=== PATIENT | male | born 1975 | race Caucasian/White ===

== ENCOUNTER 2018-11-21 10:04 | Inpatient (IN) ==
[2018-11-21 11:11] LABS: Basophils % 0.2 %; Eosinophils % 0.2 %; Hematocrit 45.8 % (37.5-50.1); Hemoglobin 15.9 g/dL (12.9-16.9); Immature Granulocytes % 0.5 % (0-4); Lymphocytes # 1.3 K/mcL (0.6-4.6); Lymphocytes % 10.2 %; Mean Corpuscular HGB Conc 34.7 g/dL (31.6-35.5); Mean Corpuscular Hemoglobin 31.6 pg (28.0-33.3); Mean Corpuscular Volume 91.1 fL (83.0-100.0); Mean Platelet Volume 11.6 fL (9.4-12.4); Monocytes # 1.1 K/mcL (0.0-1.3); Monocytes % 8.4 %; Neutrophils # 10.3 K/mcL (1.6-8.9); Platelet Count 216 K/mcL (140-400); Red Blood Count 5.03 M/mcL (4.19-5.50); Red Cell Distribution Width 12.2 % (11.5-14.5); Segmented Neutrophils % 80.5 %; White Blood Count 12.8 K/mcL (4.3-11.1)
[2018-11-21 11:28] LABS: Alanine Aminotransferase 16 Units/L (7-52); Albumin 4.5 g/dL (3.5-5.7); Albumin/Globulin Ratio 1.7 (1.1-2.2); Alkaline Phosphatase 49 Units/L (34-104); Aspartate Amino Transferase 14 Units/L (13-39); BUN/Creatinine Ratio 12 (6-26); Bilirubin,Direct 0.3 mg/dL (0.0-0.2); Bilirubin,Indirect 1.5 mg/dL (0.0-1.2); Bilirubin,Total 1.8 mg/dL (0.3-1.0); Blood Urea Nitrogen 14 mg/dL (6-20); Calcium 9.4 mg/dL (8.6-10.3); Carbon Dioxide 28 mEq/L (23-29); Chloride 103 mEq/L (98-107); Globulin 2.7 g/dL (2.4-3.5); Glucose 99 mg/dL (70-105); Lipase 16 Units/L (11-82); Osmolality,Calculated 285 (280-300); Potassium 3.9 mEq/L (3.5-5.1); Sodium 137 mEq/L (136-145); Total Protein 7.2 g/dL (6.4-8.9); eGFR For African Americans > 60 (> 60); eGFR For Non-African Americans > 60 (> 60)
--- NOTE | 2018-11-21 11:30 | Emergency Department Note ---
Disposition Clinical Impression: Perforated diverticulum, Diverticula of intestine, Lung nodule Disposition: Admitted As Inpatient Condition: Fair Time of Disposition: 12:20 Abdominal Pain HPI - General Chief Complaint: ED Abdominal Pain Stated Complaint: Abd Pain Time Seen by Provider: 11/21/18 10:57 Source: patient Mode of arrival: private vehicle Limitations: no limitations Nursing Notes Reviewed: Yes Vital Signs Reviewed: Yes - History of Present Illness HPI Narrative: Patient reports abdominal pain that started yesterday at 16:00. Pain to his left lower quadrant and suprapubic region. Associated with a fever of 100.3 and decreased appetite. Pain worse with palpation. He also notes nausea and diarrhea He states his pain is subjectively different than his previous kidney stones. Pt Subjective Complaint: abdominal pain Onset (ago): day(s) Consistency: constant Location: LLQ, suprapubic Pain Severity: severe Pain Scale: 8 Radiation: none Migration to: no migration Improves with: nothing Worsens with: other (Palpation) Associated symptoms: Reports: nausea, diarrhea, fever, dysuria - Related Data Home Medications Medication Instructions Recorded Confirmed No Known Home Drugs 11/21/18 11/21/18 Allergies Allergy/AdvReac Type Severity Reaction Status Date / Time No Known Allergies Allergy Verified 06/13/17 13:28 All systems ED: reviewed and negative except as stated. Constitutional: Reports: fever Eyes: Reports: as per HPI ENT ED: Reports: as per HPI Cardiovascular: Reports: as per HPI Respiratory: Reports: as per HPI Gastrointestinal: Reports: abdominal pain, nausea, diarrhea Genitourinary: Reports: dysuria Musculoskeletal: Reports: as per HPI Integumentary: Reports: as per HPI Neurological: Reports: as per HPI Psychiatric: Reports: as per HPI Endocrine: Reports: as per HPI Hematological/Lymphatic: Reports: as per HPI Allergic/Immunologic: Reports: as per HPI Abdominal Pain PMH - Past Medical History Medical history: Reports: no medical history, other (Kidney stones) Male Surgical History: Reports: no surgical history Psychiatric history: Reports: no psych history - Social History Smoking status: Never smoker Alcohol use: Reports: none Drug use: Reports: none Physical Exam - General Limitations: no limitations General appearance: alert, in no apparent distress - Head Head exam: atraumatic - Eye Eye exam: Present: normal appearance - ENT ENT exam: normal exam - Neck Neck exam: Present: normal inspection, full ROM - Chest Chest inspection: Present: normal inspection, symmetric chest wall rise - Respiratory Respiratory exam: Present: normal lung sounds bilaterally - Cardiovascular Cardiovascular exam: Present: regular rate, normal rhythm - Abdominal Exam Abdominal exam: Present: soft, tenderness (Tender with mild voluntary guarding his left lower quadrant. No involuntary guarding, rebound, rigidity), normal bowel sounds Abdominal tenderness: Present: RLQ. Absent: RUQ - Rectal Exam Rectal exam: Present: deferred - Extremities Exam Extremities exam: Present: normal inspection - Neurological Exam Neurological exam: Present: alert, oriented X3, CN II-XII intact - Psychiatric Psychiatric exam: Present: normal affect, normal mood - Skin Skin exam: Present: warm, dry, intact Course Course Narrative: Patient presents to the emergency department with left lower quadrant abdominal pain, fever. He does have tenderness on exam which I feel warrants a CT scan of his abdomen and pelvis. Additionally, subjectively he states that his pain is different than his previous kidney stones. Patient offered analgesics but declined Vital Signs Temperature 98.0 F 11/21/18 10:05 Pulse Rate 91 11/21/18 10:05 Respiratory Rate 18 11/21/18 10:05 Blood Pressure 136/84 11/21/18 10:05 O2 Sat by Pulse Oximetry 99 11/21/18 10:05 Temperature 98.0 F 11/21/18 10:05 Pulse Rate 91 11/21/18 10:05 Respiratory Rate 18 11/21/18 10:05 Blood Pressure 136/84 11/21/18 10:05 O2 Sat by Pulse Oximetry 99 11/21/18 10:05 Oxygen Delivery Oxygen Delivery Room Air Abdominal Pain - Medical Records Medical records reviewed: Yes I reviewed the patient's medical records. - Lab Data Lab results reviewed: Yes I reviewed the patient's lab results. Result diagrams: 11/21/18 10:50 11/21/18 10:50 Lab Results 11/21/18 11/21/18 Range/Units 10:50 10:50 WBC 12.8 H (4.3-11.1) K/mcL RBC 5.03 (4.19-5.50) M/mcL Hgb 15.9 (12.9-16.9) g/dL Hct 45.8 (37.5-50.1) % MCV 91.1 (83.0-100.0) fL MCH 31.6 (28.0-33.3) pg MCHC 34.7 (31.6-35.5) g/dL RDW 12.2 (11.5-14.5) % Plt Count 216 (140-400) K/mcL MPV 11.6 (9.4-12.4) fL Immature Gran % 0.5 (0-4) % Seg Neutrophils % 80.5 % Lymphocytes % 10.2 % Monocytes % 8.4 % Eosinophils % 0.2 % Basophils % 0.2 % Neutrophils # 10.3 H (1.6-8.9) K/mcL Lymphocytes # 1.3 (0.6-4.6) K/mcL Monocytes # 1.1 (0.0-1.3) K/mcL Eosinophils # 0.0 (0.0-0.6) K/mcL Basophils # 0.0 (0.0-0.2) K/mcL Sodium 137 (136-145) mEq/L Potassium 3.9 (3.5-5.1) mEq/L Chloride 103 (98-107) mEq/L Carbon Dioxide 28 (23-29) mEq/L BUN 14 (6-20) mg/dL Creatinine 1.17 (0.70-1.30) mg/dL Est GFR ( Amer) > 60 (> 60) Est GFR (Non-Af Amer) > 60 (> 60) BUN/Creatinine Ratio 12 (6-26) Glucose 99 (70-105) mg/dL Calculated Osmolality 285 (280-300) Calcium 9.4 (8.6-10.3) mg/dL Total Bilirubin 1.8 H (0.3-1.0) mg/dL Direct Bilirubin 0.3 H (0.0-0.2) mg/dL Indirect Bilirubin 1.5 H (0.0-1.2) mg/dL AST 14 (13-39) Units/L ALT 16 (7-52) Units/L Alkaline Phosphatase 49 (34-104) Units/L Serum Total Protein 7.2 (6.4-8.9) g/dL Albumin 4.5 (3.5-5.7) g/dL Globulin 2.7 (2.4-3.5) g/dL Albumin/Globulin Ratio 1.7 (1.1-2.2) Lipase 16 (11-82) Units/L - Radiology Data Radiology results reviewed: Yes I reviewed the patient's radiology results. Critical Care Time Critical Care Time: Yes Total Critical Care Time: 30 Attestation: The high probability of a clinically significant, sudden or life threatening deterioration of the [] system(s) required my full and direct attention, intervention and personal management. The aggregate critical care time was [] minutes. This time is in addition to time spent performing reported procedures but includes the following: [] Data Review and interpretation [] Patient assessment and monitoring of vital signs [] Documentation [] Medication orders and management
[2018-11-21] MEDS ORDERED: Piperacillin/Tazobactam 3.375 GM in 0.9 % Sodium Chloride Mini Bag 100 ML IVPB ONE (12:19)
[2018-11-21] MEDS ORDERED: MetroNIDAZOLE 500 MG/100 ML 500 MG/100 ML BAG IVPB ONE (12:19)
[2018-11-21 12:45] LABS: Bilirubin,Urine Negative (Negative); Blood,Urine Negative (Negative); Clarity,Urine Clear (Clear); Color,Urine Yellow (Yellow); Glucose,Urine (UA) Normal (Normal); Ketones,Urine Negative (Negative); Leukocyte Esterase,Urine Negative (Negative); Nitrite,Urine Negative (Negative); PH,Urine 6.5 pH Units (5.0-8.0); Protein,Urine Negative (Neg-Trace); Specific Gravity,Urine 1.014 (1.010-1.025); Urobilinogen,Urine Normal (Normal)
[2018-11-21] MEDS: 0.9 % Sodium Chloride 1,000 ML IVC SCH (14:00)
[2018-11-21] MEDS ORDERED: Ondansetron 4 MG/2 ML VIAL IVP PRN (14:23)
[2018-11-21] MEDS ORDERED: Naloxone 0.4 MG/ML INJ IVP PRN (14:23)
--- NOTE | 2018-11-21 14:41 | Acute Care Surgery H&P ---
<Stacey Lion - Last Filed: 11/21/18 19:23> Date of Encounter: 11/21/18 Time of Encounter: 14:29 Assessment and Plan (1) Perforation of sigmoid colon due to diverticulitis Current Visit: Yes Status: Acute Presents with left lower quadrant and suprapubic abdominal pain with self- reported fever, nausea, anorexia, diarrhea CT abdomen and pelvis-acute perforated sigmoid diverticulitis with contained perforation within the sigmoid mesentery with extraluminal gas noted, no scattered intraperitoneal free air identified, with adjacent fat stranding, a mild amount of free fluid, though no fluid collection or drainable abscess. Currently vital signs stable, afebrile. Self reported temperature of 100.3 at home Leukocytosis at 12.8, hyperbilirubinemia Conservative medical management Nothing by mouth Normal saline maintenance fluid Antibiotic coverage-Zosyn day 1 Pain control- Ofirmev Nausea-Zofran DVT prophylaxis subcutaneous heparin The assessment and plan as outlined above was discussed with the patient and/or family members who expressed understanding and agreement. All questions were answered. (2) Lung nodule Current Visit: Yes Status: Chronic Patient has a history of lung nodule which is being followed outpatient by PCP CT abdomen and pelvis-stable cluster of noncalcified nodules within the right lower lobe, the largest measuring 9 mm on average which is unchanged since 2017. Continue outpatient follow-up (3) DVT prophylaxis Current Visit: Yes Status: Acute Subcutaneous heparin History of Present Illness Chief complaint: Abdominal pain HPI: Mr. Talavera is a 43 year old male who presented with chief complaint of abdominal pain of one-day duration. He has a past medical history significant for multi ple calcium oxalate kidney stones as well as a pulmonary nodule which is being followed outpatient by his PCP. Patient states that the abdominal pain started yesterday afternoon and was located in the left lower quadrant and suprapubic region. He states that the pain progressed over the afternoon and into the evening. At its worst it was rated as 8 out of 10, it is constant, dull, aching, without radiation. It is aggravated by movement. It is alleviated by nothing, he did try to take one Motrin yesterday which did not alleviate the pain. Associated symptoms include fever which he measured at home at 100.3, anorexia, nausea, abdominal distention and one episode of diarrhea. Normal chelsie l function for him includes defecation once per day, soft stool. He denies chills, vomiting, headache, vision change, dysphasia, chest pain, shortness of breath, melena, hematochezia, dysuria, hematuria, calf pain, skin rash, parasthesias. He denies prior surgical history, and history noncontributory, per social history he denies tobacco use, alcohol, illicit drug use. Past Med Surg Social Fam HX - Past Medical History Medical history: no medical history, other Psychiatric history: no psych history - Past Surgical History Surgical History: no surgical history - Social History Smoking Status: Never smoker Smokeless Tobacco Status: No Alcohol use: none Drug use: none Medications and Allergies No Known Home Drugs 11/21/18 [History] Allergy/AdvReac Type Severity Reaction Status Date / Time No Known Allergies Allergy Verified 11/21/18 20:33 Review of Systems All systems PM: The remainder of the systems were reviewed and are negative - Constitutional anorexia, fever(s), no chills, no headache(s) - EENT Nose, mouth and throat: no abnormal hearing, no dysphagia - Cardiovascular no chest pain, no dyspnea, no lightheadedness - Respiratory no cough, no dyspnea - Gastrointestinal abdominal pain, bloating, change in bowel habits, diarrhea, nausea, no constipation, no dysphagia, no hematochezia, no melena, no vomiting - Genitourinary no dysuria, no hematuria - Musculoskeletal no arthralgias, no myalgias - Integumentary no lesions, no rash - Neurological no dizziness, no syncope - Psychiatric no anxiety, no depression - Endocrine no cold intolerance, no heat intolerance - Hematologic/Lymphatic no easy bleeding General Surgery Exam Initial Vital Signs Temp Pulse Resp BP Pulse Ox 98.0 F 91 18 136/84 99 11/21/18 10:05 11/21/18 10:05 11/21/18 10:05 11/21/18 10:05 11/21/18 10:05 - General physical appearance well developed, well nourished, no distress - Eyes PERRL, normal ocular movement - ENT normal mucosa, no hearing loss, no congestion - Neck no masses, trachea midline, no venous distension - Respiratory normal expansion, normal respiratory effort, clear to auscultation - Cardiovascular Cardiovascular exam: Present: RRR, no murmurs/rubs/gallops. Absent: JVD - Abdomen Abdomen general surgery: Present: bowel sounds present, soft, distended (Mildly), tender. Absent: organomegaly, guarding, rebound Abdominal Tenderness: Present: LLQ, suprapubic - Integumentary Integumentary general surgery: Present: warm and dry, no abnormal pigmentation - Neurologic Present: CN 2-12 grossly intact, normal coordination, normal sensation - Musculoskeletal Present: normal gait, normal posture - Psychiatric Psychiatric general surgery: Present: appropriate, oriented to person, oriented to place, oriented to time, speech is normal, memory intact Results - Labs 11/21/18 10:50 11/21/18 10:50 Abnormal lab results WBC 12.8 K/mcL (4.3-11.1) H 11/21/18 10:50 10.3 K/mcL (1.6-8.9) H 11/21/18 10:50 1.8 mg/dL (0.3-1.0) H 11/21/18 10:50 0.3 mg/dL (0.0-0.2) H 11/21/18 10:50 1.5 mg/dL (0.0-1.2) H 11/21/18 10:50 Diabetes panel 11/21/18 Range/Units 10:50 Sodium 137 (136-145) mEq/L Potassium 3.9 (3.5-5.1) mEq/L Chloride 103 (98-107) mEq/L Carbon Dioxide 28 (23-29) mEq/L BUN 14 (6-20) mg/dL Creatinine 1.17 (0.70-1.30) mg/dL Glucose 99 (70-105) mg/dL Calcium 9.4 (8.6-10.3) mg/dL AST 14 (13-39) Units/L ALT 16 (7-52) Units/L Alkaline Phosphatase 49 (34-104) Units/L Albumin 4.5 (3.5-5.7) g/dL Calcium panel 11/21/18 Range/Units 10:50 Calcium 9.4 (8.6-10.3) mg/dL Albumin 4.5 (3.5-5.7) g/dL Pituitary panel 11/21/18 Range/Units 10:50 Sodium 137 (136-145) mEq/L Potassium 3.9 (3.5-5.1) mEq/L Chloride 103 (98-107) mEq/L Carbon Dioxide 28 (23-29) mEq/L BUN 14 (6-20) mg/dL Creatinine 1.17 (0.70-1.30) mg/dL Glucose 99 (70-105) mg/dL Calcium 9.4 (8.6-10.3) mg/dL Adrenal panel 11/21/18 Range/Units 10:50 Sodium 137 (136-145) mEq/L Potassium 3.9 (3.5-5.1) mEq/L Chloride 103 (98-107) mEq/L Carbon Dioxide 28 (23-29) mEq/L BUN 14 (6-20) mg/dL Creatinine 1.17 (0.70-1.30) mg/dL Glucose 99 (70-105) mg/dL Calcium 9.4 (8.6-10.3) mg/dL Total Bilirubin 1.8 H (0.3-1.0) mg/dL AST 14 (13-39) Units/L ALT 16 (7-52) Units/L Alkaline Phosphatase 49 (34-104) Units/L Albumin 4.5 (3.5-5.7) g/dL All other labs normal. <Abrahan Xavier F - Last Filed: 11/21/18 20:46> Date of Encounter: 11/21/18 History of Present Illness HPI: Mr. Talavera is a 43 year old male Review of Systems All systems PM: The remainder of the systems were reviewed and are negative General Surgery Exam Initial Vital Signs Temp Pulse Resp BP Pulse Ox 98.0 F 91 18 136/84 99 11/21/18 10:05 11/21/18 10:05 11/21/18 10:05 11/21/18 10:05 11/21/18 10:05 Results - Labs 11/21/18 10:50 11/21/18 10:50 Abnormal lab results WBC 12.8 K/mcL (4.3-11.1) H 11/21/18 10:50 10.3 K/mcL (1.6-8.9) H 11/21/18 10:50 POC Glucose 102 mg/dL (70-99) H 11/21/18 17:39 1.8 mg/dL (0.3-1.0) H 11/21/18 10:50 0.3 mg/dL (0.0-0.2) H 11/21/18 10:50 1.5 mg/dL (0.0-1.2) H 11/21/18 10:50 Diabetes panel 11/21/18 Range/Units 10:50 Sodium 137 (136-145) mEq/L Potassium 3.9 (3.5-5.1) mEq/L Chloride 103 (98-107) mEq/L Carbon Dioxide 28 (23-29) mEq/L BUN 14 (6-20) mg/dL Creatinine 1.17 (0.70-1.30) mg/dL Glucose 99 (70-105) mg/dL Calcium 9.4 (8.6-10.3) mg/dL AST 14 (13-39) Units/L ALT 16 (7-52) Units/L Alkaline Phosphatase 49 (34-104) Units/L Albumin 4.5 (3.5-5.7) g/dL Calcium panel 11/21/18 Range/Units 10:50 Calcium 9.4 (8.6-10.3) mg/dL Albumin 4.5 (3.5-5.7) g/dL Pituitary panel 11/21/18 Range/Units 10:50 Sodium 137 (136-145) mEq/L Potassium 3.9 (3.5-5.1) mEq/L Chloride 103 (98-107) mEq/L Carbon Dioxide 28 (23-29) mEq/L BUN 14 (6-20) mg/dL Creatinine 1.17 (0.70-1.30) mg/dL Glucose 99 (70-105) mg/dL Calcium 9.4 (8.6-10.3) mg/dL Adrenal panel 11/21/18 Range/Units 10:50 Sodium 137 (136-145) mEq/L Potassium 3.9 (3.5-5.1) mEq/L Chloride 103 (98-107) mEq/L Carbon Dioxide 28 (23-29) mEq/L BUN 14 (6-20) mg/dL Creatinine 1.17 (0.70-1.30) mg/dL Glucose 99 (70-105) mg/dL Calcium 9.4 (8.6-10.3) mg/dL Total Bilirubin 1.8 H (0.3-1.0) mg/dL AST 14 (13-39) Units/L ALT 16 (7-52) Units/L Alkaline Phosphatase 49 (34-104) Units/L Albumin 4.5 (3.5-5.7) g/dL All other labs normal. - Attending Attestation I examined this patient and my medical decision-making was reviewed with the Resident Physician. I agree with the documented findings, disposition and treatment plan as described except to the extent set forth below.
[2018-11-21] MEDS ORDERED: Ketorolac 30 MG/ML VIAL IVP PRN (15:28)
[2018-11-21] MEDS: *HR* Heparin 5,000 UNIT/ML VIAL SQ SCH (18:52)
[2018-11-21] MEDS ORDERED: Acetaminophen IV 1,000 MG/100 ML INFUS..BTL IVPB PRN (19:20)
[2018-11-21] MEDS: Piperacillin/Tazobactam 3.375 GM in 0.9 % Sodium Chloride Mini Bag 100 ML IVPB SCH (20:08)
[2018-11-22] MEDS: 0.9 % Sodium Chloride 1,000 ML IVC SCH (01:09)
[2018-11-22] MEDS: Piperacillin/Tazobactam 3.375 GM in 0.9 % Sodium Chloride Mini Bag 100 ML IVPB SCH ×3 (04:20→20:15)
[2018-11-22 05:25] LABS: Basophils % 0.2 %; Eosinophils # 0.1 K/mcL (0.0-0.6); Eosinophils % 0.6 %; Hematocrit 41.2 % (37.5-50.1); Immature Granulocytes % 0.5 % (0-4); Lymphocytes # 1.1 K/mcL (0.6-4.6); Lymphocytes % 11.2 %; Mean Corpuscular HGB Conc 33.3 g/dL (31.6-35.5); Mean Corpuscular Hemoglobin 31.4 pg (28.0-33.3); Mean Corpuscular Volume 94.3 fL (83.0-100.0); Mean Platelet Volume 11.8 fL (9.4-12.4); Monocytes # 0.9 K/mcL (0.0-1.3); Monocytes % 8.7 %; Neutrophils # 7.7 K/mcL (1.6-8.9); Platelet Count 179 K/mcL (140-400); Red Blood Count 4.37 M/mcL (4.19-5.50); Segmented Neutrophils % 78.8 %; White Blood Count 9.8 K/mcL (4.3-11.1)
[2018-11-22 05:26] LABS: Hemoglobin 13.7 g/dL (12.9-16.9)
[2018-11-22 05:44] LABS: BUN/Creatinine Ratio 12 (6-26); Blood Urea Nitrogen 14 mg/dL (6-20); Calcium 8.5 mg/dL (8.6-10.3); Carbon Dioxide 24 mEq/L (23-29); Chloride 107 mEq/L (98-107); Glucose 98 mg/dL (70-105); Magnesium 2.2 mg/dL (1.6-2.6); Osmolality,Calculated 290 (280-300); Phosphorous 2.7 mg/dL (2.7-4.5); Potassium 3.9 mEq/L (3.5-5.1); Sodium 140 mEq/L (136-145); eGFR For African Americans > 60 (> 60); eGFR For Non-African Americans > 60 (> 60)
[2018-11-22] MEDS: *HR* Heparin 5,000 UNIT/ML VIAL SQ SCH ×2 (05:49→17:40)
--- NOTE | 2018-11-22 10:24 | AcuteCareSurgery Progress Note ---
<Stacey Lion - Last Filed: 11/22/18 10:22> Date of Encounter: 11/22/18 Time of Encounter: 10:22 - Assessment and Plan (1) Perforation of sigmoid colon due to diverticulitis Current Visit: Yes Status: Acute Presents with left lower quadrant and suprapubic abdominal pain with self- reported fever, nausea, anorexia, diarrhea CT abdomen and pelvis-acute perforated sigmoid diverticulitis with contained perforation within the sigmoid mesentery with extraluminal gas noted, no scattered intraperitoneal free air identified, with adjacent fat stranding, a mild amount of free fluid, though no fluid collection or drainable abscess. Currently vital signs stable, afebrile. Self reported temperature of 100.3 at home Leukocytosis at 12.8, hyperbilirubinemia Continue conservative medical management Leukocytosis has resolved, currently 9.8 We will advance diet to clear liquids Discontinue IV fluids Antibiotic coverage-Zosyn day 2 Pain control-ofirmev Nausea-Zofran Continue to ambulate (2) Creatinine elevation Current Visit: Yes Status: Acute Creatinine higher than expected for his age and state of health. Remains within normal limits. Creatinine on admission 1.17, currently 1.19 Could be secondary to his anorexia, diarrhea Continue to monitor Discussed further evaluation for patient via primary care on discharge (3) Lung nodule Current Visit: Yes Status: Chronic Patient has a history of lung nodule which is being followed outpatient by PCP CT abdomen and pelvis-stable cluster of noncalcified nodules within the right lower lobe, the largest measuring 9 mm on average which is unchanged since 2017. Continue outpatient follow-up (4) DVT prophylaxis Current Visit: Yes Status: Acute Subcutaneous heparin Subjective Narrative: Patient seen and examined at bedside today. His leukocytosis has improved with IV antibiotics. He denies pain, he denies fever, chills, nausea, vomiting, chest pain, shortness breath, abdominal pain, dysuria, diarrhea, constipation, calf pain. Patient states that he is feeling hungry today and he is ambulating well. He is last bowel movement occurred on Tuesday. Objective Vital Signs - Last 8 Hours Temp Pulse Resp BP Pulse Ox 11/22/18 06:55 98.3 F 75 14 106/70 97 11/22/18 06:43 98.3 F 75 14 106/70 97 11/22/18 03:35 98.4 F 75 14 101/67 97 Intake and Output 11/21/18 11/22/18 11/22/18 23:59 07:59 15:59 Intake Total 1000 / 1100 100 / 100 Balance 1000 / 1100 100 / 100 Intake: IV Fluids 1000 / 1100 100 / 100 0.9 % Sodium Chloride 1,000 ML 1000 / 1000 @ 120 mls/hr IVC .[id number] [facility] Rx #:[id number] Zosyn 3.375 GM In 0.9 % Sodium 100 / 100 Chloride (Mini-Bag +) 100 ML @ 25 mls/hr IVPB Q8H DELLA Rx#: [id number] Oral 0 / 0 0 / 0 Other: Meal npo # Voids 2 1 # Bowel Movements 0 0 Weight 78.9 kg Blood Glucose* 102 91 Patient Weight 11/22/18 23:59 Weight 78.9 kg - General physical appearance well developed, no distress - Eyes PERRL, normal ocular movement - ENT normal nares, normal mucosa, no congestion - Neck Neck exam: trachea midline, no venous distension - Respiratory normal expansion, normal respiratory effort, clear to percussion, clear to auscultation - Cardiovascular Cardiovascular exam: Present: RRR, no murmurs/rubs/gallops. Absent: JVD - Abdomen Abdomen: Present: bowel sounds present, soft, distended (Mild, decreased since yesterday), tender (Mild) Abdominal Tenderness: LLQ - Integumentary no rash, no abnormal pigmentation - Neurologic CN 2-12 grossly intact, normal coordination, normal sensation - Musculoskeletal normal gait, normal posture - Psychiatric oriented to time, oriented to person, oriented to place, speech is normal, memory intact - Labs 11/22/18 04:02 11/22/18 04:02 Diabetes panel 11/21/18 11/22/18 Range/Units 10:50 04:02 Sodium 137 140 (136-145) mEq/L Potassium 3.9 3.9 (3.5-5.1) mEq/L Chloride 103 107 (98-107) mEq/L Carbon Dioxide 28 24 (23-29) mEq/L BUN 14 14 (6-20) mg/dL Creatinine 1.17 1.19 (0.70-1.30) mg/dL Glucose 99 98 (70-105) mg/dL Calcium 9.4 8.5 L (8.6-10.3) mg/dL AST 14 (13-39) Units/L ALT 16 (7-52) Units/L Alkaline Phosphatase 49 (34-104) Units/L Albumin 4.5 (3.5-5.7) g/dL Calcium panel 11/21/18 11/22/18 Range/Units 10:50 04:02 Calcium 9.4 8.5 L (8.6-10.3) mg/dL Phosphorus 2.7 (2.7-4.5) mg/dL Albumin 4.5 (3.5-5.7) g/dL Pituitary panel 11/21/18 11/22/18 Range/Units 10:50 04:02 Sodium 137 140 (136-145) mEq/L Potassium 3.9 3.9 (3.5-5.1) mEq/L Chloride 103 107 (98-107) mEq/L Carbon Dioxide 28 24 (23-29) mEq/L BUN 14 14 (6-20) mg/dL Creatinine 1.17 1.19 (0.70-1.30) mg/dL Glucose 99 98 (70-105) mg/dL Calcium 9.4 8.5 L (8.6-10.3) mg/dL Adrenal panel 11/21/18 11/22/18 Range/Units 10:50 04:02 Sodium 137 140 (136-145) mEq/L Potassium 3.9 3.9 (3.5-5.1) mEq/L Chloride 103 107 (98-107) mEq/L Carbon Dioxide 28 24 (23-29) mEq/L BUN 14 14 (6-20) mg/dL Creatinine 1.17 1.19 (0.70-1.30) mg/dL Glucose 99 98 (70-105) mg/dL Calcium 9.4 8.5 L (8.6-10.3) mg/dL Total Bilirubin 1.8 H (0.3-1.0) mg/dL AST 14 (13-39) Units/L ALT 16 (7-52) Units/L Alkaline Phosphatase 49 (34-104) Units/L Albumin 4.5 (3.5-5.7) g/dL Consult Discharge Plan - Plan Referrals: Issa Hough MD [Primary Care Provider] - <Luke Queen - Last Filed: 11/22/18 16:30> Date of Encounter: 11/22/18 Objective Vital Signs - Last 8 Hours Temp Pulse Resp BP Pulse Ox 11/22/18 14:33 98.3 F 84 14 112/76 98 11/22/18 10:24 98.7 F 79 14 138/78 96 Intake and Output 11/22/18 11/22/18 11/22/18 07:59 15:59 23:59 Intake Total 100 / 200 100 / 200 Balance 100 / 200 100 / 200 Intake: IV Fluids 100 / 200 100 / 200 Zosyn 3.375 GM In 0.9 % Sodium 100 / 200 100 / 200 Chloride (Mini-Bag +) 100 ML @ 25 mls/hr IVPB Q8H [facility] Rx#: [id number] Oral 0 / 0 Other: Meal npo # Voids 1 1 # Bowel Movements 0 Weight 78.9 kg Blood Glucose* 91 Patient Weight 11/22/18 23:59 Weight 78.9 kg - Labs 11/22/18 04:02 11/22/18 04:02 Diabetes panel 11/22/18 Range/Units 04:02 Sodium 140 (136-145) mEq/L Potassium 3.9 (3.5-5.1) mEq/L Chloride 107 (98-107) mEq/L Carbon Dioxide 24 (23-29) mEq/L BUN 14 (6-20) mg/dL Creatinine 1.19 (0.70-1.30) mg/dL Glucose 98 (70-105) mg/dL Calcium 8.5 L (8.6-10.3) mg/dL Calcium panel 11/22/18 Range/Units 04:02 Calcium 8.5 L (8.6-10.3) mg/dL Phosphorus 2.7 (2.7-4.5) mg/dL Pituitary panel 11/22/18 Range/Units 04:02 Sodium 140 (136-145) mEq/L Potassium 3.9 (3.5-5.1) mEq/L Chloride 107 (98-107) mEq/L Carbon Dioxide 24 (23-29) mEq/L BUN 14 (6-20) mg/dL Creatinine 1.19 (0.70-1.30) mg/dL Glucose 98 (70-105) mg/dL Calcium 8.5 L (8.6-10.3) mg/dL Adrenal panel 11/22/18 Range/Units 04:02 Sodium 140 (136-145) mEq/L Potassium 3.9 (3.5-5.1) mEq/L Chloride 107 (98-107) mEq/L Carbon Dioxide 24 (23-29) mEq/L BUN 14 (6-20) mg/dL Creatinine 1.19 (0.70-1.30) mg/dL Glucose 98 (70-105) mg/dL Calcium 8.5 L (8.6-10.3) mg/dL - Attending Attestation I examined this patient and my medical decision-making was reviewed with the Resident Physician. I agree with the documented findings, disposition and treatment plan as described except to the extent set forth below. I reviewed the above assessment and evaluation and agree with the above plan. Will go ahead and allow clears. Continue to monitor. Likely further advancement of his diet tomorrow and consideration for disposition if he cont inues to improve.
[2018-11-23] MEDS: *HR* Heparin 5,000 UNIT/ML VIAL SQ SCH ×2 (05:05→17:55)
[2018-11-23] MEDS: Piperacillin/Tazobactam 3.375 GM in 0.9 % Sodium Chloride Mini Bag 100 ML IVPB SCH ×3 (05:05→20:05)
[2018-11-23 06:09] LABS: Basophils % 0.5 %; Eosinophils # 0.1 K/mcL (0.0-0.6); Eosinophils % 0.9 %; Hemoglobin 13.9 g/dL (12.9-16.9); Immature Granulocytes % 0.5 % (0-4); Lymphocytes # 1.3 K/mcL (0.6-4.6); Lymphocytes % 16.5 %; Mean Corpuscular HGB Conc 33.9 g/dL (31.6-35.5); Mean Corpuscular Hemoglobin 32.1 pg (28.0-33.3); Mean Corpuscular Volume 94.7 fL (83.0-100.0); Mean Platelet Volume 11.8 fL (9.4-12.4); Monocytes # 0.8 K/mcL (0.0-1.3); Neutrophils # 5.8 K/mcL (1.6-8.9); Platelet Count 202 K/mcL (140-400); Red Blood Count 4.33 M/mcL (4.19-5.50); Red Cell Distribution Width 12.1 % (11.5-14.5); Segmented Neutrophils % 71.6 %; White Blood Count 8.1 K/mcL (4.3-11.1)
[2018-11-23 06:33] LABS: BUN/Creatinine Ratio 7 (6-26); Blood Urea Nitrogen 9 mg/dL (6-20); Carbon Dioxide 25 mEq/L (23-29); Chloride 105 mEq/L (98-107); Glucose 96 mg/dL (70-105); Osmolality,Calculated 295 (280-300); Potassium 4.1 mEq/L (3.5-5.1); Sodium 143 mEq/L (136-145); eGFR For African Americans > 60 (> 60); eGFR For Non-African Americans > 60 (> 60)
--- NOTE | 2018-11-23 11:34 | AcuteCareSurgery Progress Note ---
Date of Encounter: 11/23/18 Time of Encounter: 07:30 - Assessment and Plan (1) Perforation of sigmoid colon due to diverticulitis Current Visit: Yes Status: Acute Pt improving well. Tolerating liquid diet. Advance to low residue diet. COntinue IV abx. Will DC on PO abx in am if pt tolerated diet. Subjective Patient reports: no new complaints, feels better, still having pain, tolerating liquids well, flatus, no bowel movement Objective Vital Signs - Last 8 Hours Temp Pulse Resp BP Pulse Ox 11/23/18 10:14 98.3 F 78 16 117/80 99 11/23/18 06:39 98.6 F 66 16 120/76 96 Intake and Output 11/22/18 11/23/18 11/23/18 23:59 07:59 15:59 Intake Total 800 / 1000 Balance 800 / 1000 Intake: IV Fluids 200 / 400 Zosyn 3.375 GM In 0.9 % Sodium 200 / 400 Chloride (Mini-Bag +) 100 ML @ 25 mls/hr IVPB Q8H DELLA Rx#: [id number] Oral 600 / 600 Other: Meal clears # Voids 2 Weight 79.1 kg Patient Weight 11/23/18 23:59 Weight 79.1 kg - General physical appearance well developed, well nourished, no distress, moderate pain (much improved from admission) - Eyes PERRL, normal ocular movement - ENT normal mucosa, no congestion - Neck Neck exam: trachea midline, no venous distension - Respiratory normal respiratory effort, clear to auscultation - Cardiovascular Cardiovascular exam: Present: RRR - Abdomen Abdomen: Present: bowel sounds present, soft, tender Abdominal Tenderness: LLQ - Genitourinary normal penis with no external lesions - Integumentary no rash - Neurologic CN 2-12 grossly intact, normal coordination - Musculoskeletal normal gait, normal posture - Psychiatric oriented to time, oriented to person, oriented to place - Labs 11/23/18 04:51 11/23/18 04:51 Diabetes panel 11/23/18 Range/Units 04:51 Sodium 143 (136-145) mEq/L Potassium 4.1 (3.5-5.1) mEq/L Chloride 105 (98-107) mEq/L Carbon Dioxide 25 (23-29) mEq/L BUN 9 (6-20) mg/dL Creatinine 1.27 (0.70-1.30) mg/dL Glucose 96 (70-105) mg/dL Calcium 9.0 (8.6-10.3) mg/dL Calcium panel 11/23/18 Range/Units 04:51 Calcium 9.0 (8.6-10.3) mg/dL Pituitary panel 11/23/18 Range/Units 04:51 Sodium 143 (136-145) mEq/L Potassium 4.1 (3.5-5.1) mEq/L Chloride 105 (98-107) mEq/L Carbon Dioxide 25 (23-29) mEq/L BUN 9 (6-20) mg/dL Creatinine 1.27 (0.70-1.30) mg/dL Glucose 96 (70-105) mg/dL Calcium 9.0 (8.6-10.3) mg/dL Adrenal panel 11/23/18 Range/Units 04:51 Sodium 143 (136-145) mEq/L Potassium 4.1 (3.5-5.1) mEq/L Chloride 105 (98-107) mEq/L Carbon Dioxide 25 (23-29) mEq/L BUN 9 (6-20) mg/dL Creatinine 1.27 (0.70-1.30) mg/dL Glucose 96 (70-105) mg/dL Calcium 9.0 (8.6-10.3) mg/dL Consult Discharge Plan - Plan Referrals: Issa Hough MD [Primary Care Provider] -
[2018-11-24] MEDS: Piperacillin/Tazobactam 3.375 GM in 0.9 % Sodium Chloride Mini Bag 100 ML IVPB SCH (05:01)
[2018-11-24] MEDS: *HR* Heparin 5,000 UNIT/ML VIAL SQ SCH ×2 (05:07→05:11)
[2018-11-24 06:51] LABS: Basophils % 0.7 %; Eosinophils # 0.1 K/mcL (0.0-0.6); Eosinophils % 2.2 %; Hematocrit 43.1 % (37.5-50.1); Hemoglobin 14.3 g/dL (12.9-16.9); Immature Granulocytes % 0.5 % (0-4); Lymphocytes # 1.3 K/mcL (0.6-4.6); Lymphocytes % 24.5 %; Mean Corpuscular HGB Conc 33.2 g/dL (31.6-35.5); Mean Corpuscular Hemoglobin 31.4 pg (28.0-33.3); Mean Corpuscular Volume 94.5 fL (83.0-100.0); Mean Platelet Volume 11.6 fL (9.4-12.4); Monocytes # 0.6 K/mcL (0.0-1.3); Monocytes % 10.8 %; Neutrophils # 3.4 K/mcL (1.6-8.9); Platelet Count 231 K/mcL (140-400); Red Blood Count 4.56 M/mcL (4.19-5.50); Red Cell Distribution Width 12.1 % (11.5-14.5); Segmented Neutrophils % 61.3 %; White Blood Count 5.5 K/mcL (4.3-11.1)
[2018-11-24 06:57] LABS: BUN/Creatinine Ratio 9 (6-26); Blood Urea Nitrogen 11 mg/dL (6-20); Calcium 9.2 mg/dL (8.6-10.3); Carbon Dioxide 26 mEq/L (23-29); Chloride 104 mEq/L (98-107); Glucose 90 mg/dL (70-105); Osmolality,Calculated 293 (280-300); Potassium 3.9 mEq/L (3.5-5.1); Sodium 142 mEq/L (136-145); eGFR For African Americans > 60 (> 60); eGFR For Non-African Americans > 60 (> 60)
[2018-11-24 07:05] VITALS: BP 113/76
--- NOTE | 2018-11-24 09:19 | Discharge Summary ---
<Stacey Lion - Last Filed: 11/24/18 09:17> - NOTES TO OUTPATIENT PROVIDER Notes to Outpatient Provider: Patient had episode of acute diverticulitis. Medications include ciprofloxacin and metronidazole for 5 days. Patient to follow-up with acute care surgery in 2 weeks. Once diverticulitis resolves, patient will need a colonoscopy. Patient was also noted to have a small elevation in his creatinine which was unusual given his state of health and age. Would recommend continuing to follow his renal function. Date of Encounter: 11/24/18 Time of Encounter: 09:17 - Discharge Diagnosis (1) Perforation of sigmoid colon due to diverticulitis Priority: Primary Status: Acute (2) Creatinine elevation Priority: Secondary Status: Chronic (3) Lung nodule Priority: Secondary Status: Chronic (4) DVT prophylaxis Priority: Secondary Status: Acute General Surgery Exam Initial Vital Signs Temp Pulse Resp BP Pulse Ox 98.0 F 91 18 136/84 99 11/21/18 10:05 11/21/18 10:05 11/21/18 10:05 11/21/18 10:05 11/21/18 10:05 - General physical appearance well developed, well nourished, no distress - Eyes PERRL, normal ocular movement - ENT normal mucosa, no congestion - Neck trachea midline, no venous distension - Respiratory normal expansion, normal respiratory effort, clear to auscultation - Cardiovascular Cardiovascular exam: Present: RRR, no murmurs/rubs/gallops. Absent: JVD - Abdomen Abdomen general surgery: Present: bowel sounds present, soft, non tender - Integumentary Integumentary general surgery: Present: warm and dry, no abnormal pigmentation - Neurologic Present: CN 2-12 grossly intact, normal coordination - Musculoskeletal Present: normal gait, normal posture - Psychiatric Psychiatric general surgery: Present: A&Ox3, appropriate, oriented to person, oriented to place, oriented to time, speech is normal, memory intact - Hospital Course Hospital course: Mr. Talavera is a 43 year old male who presented with left lower quadrant and suprapubic abdominal pain as well as self-report fever, nausea, anorexia, diarrhea. He has a past medical history of a lung nodule which is being followed up by his PCP. Patient was afebrile on admission with some leukocytosis of 12.8. Patient was started on antibiotic coverage with Zosyn. Patient underwent CT abdomen and pelvis which revealed acute micromol perforated sigmoid diverticulitis with contained perforation in the sigmoid mesentery with extraluminal gas noted, scattered intraperitoneal free air identified and a mild amount of free fluid with no fluid collection or drainable abscess. His imaging also revealed a stable cluster of noncalcified nodules within the right lower lung lobe, the largest was measuring 9 mm which is unchanged since last imaging performed in 2017. Over the course of admission, the patient's leukocytosis resolved, pain resolved, and patient able to tolerate diet. There was no need for surgery. Patient remained on Zosyn for antibiotic coverage. His vital signs are stable, patient is well to discharge to home. Medications include metronidazole and ciprofloxacin for 5 days. Patient follow- up in 2 weeks with acute surgery service. Once diverticulitis resolves, patient will need colonoscopy for further evaluation. - Time Spent with Patient Total time spent providing and/or coordinating discharge services: - Discharge Medications Prescriptions: New Ciprofloxacin [Cipro] 500 mg PO BID 5 Days #10 tablet metroNIDAZOLE [Flagyl] 500 mg PO TID 5 Days #15 tablet Home Medications: Ciprofloxacin [Cipro] 500 mg PO BID 5 Days #10 tablet 11/24/18 [Rx] metroNIDAZOLE [Flagyl] 500 mg PO TID 5 Days #15 tablet 11/24/18 [Rx] Allergies/Adverse Reactions: Allergy/AdvReac Type Severity Reaction Status Date / Time No Known Allergies Allergy Verified 11/21/18 20:33 Date of admission: 11/22/18 12:15 Primary care physician: Issa Hough MD Discharging clinician: Stacey Lion Anticipated date of discharge: 11/24/18 Labs on day of discharge: Labs from last 24 hours 11/24/18 11/24/18 05:26 05:26 WBC 5.5 RBC 4.56 Hgb 14.3 Hct 43.1 MCV 94.5 MCH 31.4 MCHC 33.2 RDW 12.1 Plt Count 231 MPV 11.6 Immature Gran % 0.5 Seg Neutrophils % 61.3 Lymphocytes % 24.5 Monocytes % 10.8 Eosinophils % 2.2 Basophils % 0.7 Neutrophils # 3.4 Lymphocytes # 1.3 Monocytes # 0.6 Eosinophils # 0.1 Basophils # 0.0 Sodium 142 Potassium 3.9 Chloride 104 Carbon Dioxide 26 BUN 11 Creatinine 1.22 Est GFR ( Amer) > 60 Est GFR (Non-Af Amer) > 60 BUN/Creatinine Ratio 9 Glucose 90 Calculated Osmolality 293 Calcium 9.2 - Impressions ITS Impressions Abdomen/Pelvis CT 11/21/18 11:13 IMPRESSION: 1. Findings are most consistent with an acute perforated sigmoid diverticulitis, with a contained perforation within the sigmoid mesentery, with adjacent fat stranding and free fluid, though no walled-off fluid collection or drainable abscess is identified. Suggest appropriate clinical treatment, and consider at least short-term CT abdomen/pelvis follow-up to ensure resolution of these findings, as a perforated malignant sigmoid mass is not excluded. 2. Bilateral nonobstructing nephrolithiasis, without evidence of a ureteral calculus or hydronephrosis. 3. Stable cluster of noncalcified nodules within the right lower lobe, the largest measuring 9 mm on average, unchanged from 01/07/2017. Consider a final follow-up chest CT in 2 months to document 2 year stability of these nodules. RECOMMENDATIONS: Fleischner Society guidelines for follow-up and management of incidentally detected pulmonary nodules: Multiple Solid Nodules: Nodule size greater than 8 mm In a low-risk patient, CT at 3-6 months, then consider CT at 18-24 months. In a high-risk patient, CT at 3-6 months, then CT at 18-24 months. Radiology 2017 http://pubs.rsna.org/doi/full/10.1148/radiol.[email or web address] D/ / 11/21/2018 12:16:33 Buster Clayton MD / Lynda Miner Interpreting Provider: Buster Clayton MD - Patient Status Disposition: Home, Self-Care Condition: Good Functional capacity at discharge: independent ambulation Overall status at discharge: patient is progressing back to baseline - Discharge Instructions Instructions: Diverticulitis (DC), Pulmonary Nodules (DC), Perforated Bowel (DC) Follow Up With: Abrahan Xavier [Partnered Physician] - 12/12/18 8:10 am Additional Instructions: Follow-up appointments: If there is not an appointment listed below, please call your physician and schedule a follow-up appointment. If you have congestive heart failure and your symptoms return, make an appointment with your physician. Medication List: Carry an up to date list of medications you are taking at all time. We have given you an updated medication list including any new medications that you have been prescribed. Please provide that list to your primary provider Symptoms: If your condition changes or you experience any of the following symptoms, notify your physician immediately: Unusual or worsening pain, fever, persistent nausea and vomiting, bleeding, increase in swelling (especially in your legs), sudden weight gain, extreme dizziness, chest pain, increased drainage or redness from a wound or incision. Go to the emergency department if you experience a problem with breathing. Weights: If you have a history of swelling or shortness of breath, weigh yourself daily and notify your physician if you have a weight gain of two or more pounds in one day or 5 or more pounds in a week. If you experience any of the warning signs for stroke: Sudden numbness or weakness of the face, arm or leg; especially on one side of the body, sudden confusion, trouble speaking or understanding, sudden trouble seeing in one or both eyes, sudden trouble walking, dizziness, loss of balance or coordination, sudden sever headache with no cause; Call 911 or go to the emergency room. Stroke is a medical emergency. Some risk factors for stroke: Age, cigarette smoking, diabetes, excessive alcohol consumption, family history, high blood pressure, overweight, physical inactivity, prior stroke, heart attack, diagnosis of carotid artery stenosis or other artery disease. If you smoke, STOP: Smoking or tobacco use significantly increases your risk of heart and lung disease. Your chance of disease greatly increases if you continue to smoke. For more information, call the [place] tobacco quit line for smoking cessation 9-069-VHTW-NOW ( ) - Diet and Activity Activity: resume usual activities as tolerated Diet: advance to your usual diet <Suleman Falcon - Last Filed: 11/24/18 12:30> Date of Encounter: 11/24/18 General Surgery Exam Initial Vital Signs Temp Pulse Resp BP Pulse Ox 98.0 F 91 18 136/84 99 11/21/18 10:05 11/21/18 10:05 11/21/18 10:05 11/21/18 10:05 11/21/18 10:05 - Hospital Course Hospital course: Mr. Talavera is a 43 year old male - Time Spent with Patient Total time spent providing and/or coordinating discharge services: Date of admission: 11/22/18 12:15 Primary care physician: Issa Hough MD Labs on day of discharge: Labs from last 24 hours 11/24/18 11/24/18 05:26 05:26 WBC 5.5 RBC 4.56 Hgb 14.3 Hct 43.1 MCV 94.5 MCH 31.4 MCHC 33.2 RDW 12.1 Plt Count 231 MPV 11.6 Immature Gran % 0.5 Seg Neutrophils % 61.3 Lymphocytes % 24.5 Monocytes % 10.8 Eosinophils % 2.2 Basophils % 0.7 Neutrophils # 3.4 Lymphocytes # 1.3 Monocytes # 0.6 Eosinophils # 0.1 Basophils # 0.0 Sodium 142 Potassium 3.9 Chloride 104 Carbon Dioxide 26 BUN 11 Creatinine 1.22 Est GFR ( Amer) > 60 Est GFR (Non-Af Amer) > 60 BUN/Creatinine Ratio 9 Glucose 90 Calculated Osmolality 293 Calcium 9.2 - Impressions ITS Impressions Abdomen/Pelvis CT 11/21/18 11:13 IMPRESSION: 1. Findings are most consistent with an acute perforated sigmoid diverticulitis, with a contained perforation within the sigmoid mesentery, with adjacent fat stranding and free fluid, though no walled-off fluid collection or drainable abscess is identified. Suggest appropriate clinical treatment, and consider at least short-term CT abdomen/pelvis follow-up to ensure resolution of these findings, as a perforated malignant sigmoid mass is not excluded. 2. Bilateral nonobstructing nephrolithiasis, without evidence of a ureteral calculus or hydronephrosis. 3. Stable cluster of noncalcified nodules within the right lower lobe, the largest measuring 9 mm on average, unchanged from 01/07/2017. Consider a final follow-up chest CT in 2 months to document 2 year stability of these nodules. RECOMMENDATIONS: Fleischner Society guidelines for follow-up and management of incidentally detected pulmonary nodules: Multiple Solid Nodules: Nodule size greater than 8 mm In a low-risk patient, CT at 3-6 months, then consider CT at 18-24 months. In a high-risk patient, CT at 3-6 months, then CT at 18-24 months. Radiology 2017 http://pubs.rsna.org/doi/full/10.1148/[email or web address] D/ / 11/21/2018 12:16:33 Buster Clayton MD / Lynda Miner Interpreting Provider: Buster Clayton MD - Attending Attestation I examined this patient and my medical decision-making was reviewed with the Resident Physician. I agree with the documented findings, disposition and treatment plan as described except to the extent set forth below. The patient is seen and evaluated on an acute care surgery rounds. The patient has no abdominal pain. He is tolerating low-residue diet. Abdominal examination is completely negative. Discharged home on ciprofloxacin and Flagyl. He will require follow-up for diagnostic colonoscopy. Suleman Falcon MD FACS
== END 2018-11-24 10:10 | disposition home or self-care (01) | DRG 392 ==
LOC: EMEROOARM 10:04 → 3ANU 10:04
PROVIDERS: ADMIT Surgery; ATTEND Surgery